=== PATIENT | female | born 2000 | race Caucasian/White ===

== ENCOUNTER → 2021-07-20 15:46 | Outpatient (CLI) | payer BC, SELFPAY ==
--- NOTE | ~2021-07-20 | US_ITS ---
EXAMINATION: US transvaginal DATE: 07/20/2021 16:03 INDICATION: Dysmenorrhea, IUD position assessment TECHNIQUE: Multiple endovaginal sonographic images of the pelvis were obtained. COMPARISON: None. FINDINGS: The uterus measures 6.1 x 3.7 x 4.7 cm. The endometrial complex measures 4 mm. The IUD is i n expected position. The right ovary measures 2.4 x 1.7 x 1.9 cm. The left ovary measures 2.9 x 1.8 x 2.7 cm. There is normal vascular flow in the ovaries. There is no free fluid in the pelvis. IMPRESSION: 1. No sonographic correlate for the patient's symptoms. 2. IUD in expected position. Reviewed, dictated and finalized at location F. [facility]
== END ==
PROVIDERS: Visit Provider Nurse Practitioner
DX: N94.6 Dysmenorrhea, unspecified (principal); Z97.5 Presence of (intrauterine) contraceptive device
CPT/HCPCS: 76830

== ENCOUNTER 2023-11-27 09:09 | Outpatient (CLI) | payer OTHER, SELFPAY ==
--- NOTE | ~2023-11-27 | US_ITS ---
Pelvic ultrasound. Clinical History: First trimester , establish dates and viability Technique: Realtime transvaginal scanning of the pelvis was performed. Color flow Doppler and Doppler spectral analysis were performed. Findings: The uterus is anteverted, and contains an intrauterine gestation. Cardwell-rump length of 3.6 m corresponds to an estimated gestational age of 10 weeks 3 days. heart rate is 161 bpm. The right ovary is not visualized. No significant right ovarian or adnexal mass is seen. The left ovary measures 3.8 x 2.9 x 2.0 cm. No significant left ovarian or adnexal mass is seen. There is no evidence of free fluid in the cul de sac. Impression: Live intrauterine gestation with estimated gestational age of 10 weeks 3 days. heart rate is 16 1 bpm. Reviewed, dictated and finalized at [facility]. Impression: Live intrauterine gestation with estimated gestational age of 10 weeks 3 days. heart rate is 161 bpm.
== END 2023-11-27 09:10 ==
PROVIDERS: PCP Obstetrics & Gynecology Gynecology; Visit Provider Obstetrics & Gynecology Gynecology
DX: Z36.87 Encounter for antenatal screening for uncertain dates (principal); E28.2 Polycystic ovarian syndrome
CPT/HCPCS: 76817

== ENCOUNTER 2023-12-10 15:49 | Outpatient (CLI) | payer OTHER, SELFPAY ==
--- NOTE | ~2023-12-10 | US_ITS ---
US OB transvaginal Ordering provider: Dinah Vázquez MD History: . 1ST TRIMESTER SPOTTING . Comparison: None. Technique: endovaginal ultrasound of the pelvis (Doppler ultrasound interrogation techniques used as needed for this exam.) FINDINGS: CERVIX: Normal. UTERUS: Measures 8.8 x 8.2 x 8.2 cm in length which is slightly enlarged. And is anteverted. . ENDOMETRIUM: Intrauterine with Heart rate is 164.. movement is noted. yolk sac is noted. pole measures 5.2 cm which equals 11 weeks and 6 days. NU: The 06/24/2024. CUL DE SAC: No free fluid. RIGHT OVARY: Not visualized LEFT OVARY: Not visualized. ADNEXA: No definite abnormal. IMPRESSION: Single live fetus. Intrauterine with gestational age of 11 weeks and 6 days.. Reviewed, dictated and finalized at location A.
== END 2023-12-10 15:50 ==
PROVIDERS: PCP Obstetrics & Gynecology Gynecology; Visit Provider Obstetrics & Gynecology Gynecology
DX: O26.851 Spotting complicating pregnancy, first trimester (principal)
CPT/HCPCS: 76817

== ENCOUNTER 2024-01-28 09:21 | Outpatient (CLI) | payer OTHER, SELFPAY ==
--- NOTE | ~2024-01-28 | US_ITS ---
EXAMINATION: US OB /maternal detail DATE: 01/28/2024 09:54 INDICATION: anatomic survey. TECHNIQUE: Real-time ultrasound of the pelvis was performed. COMPARISON: Ultrasound 12/10/2023, 11/27/2023 FINDINGS: There is a single living fetus in vertex presentation. The placenta is posterior, 2.47 cm from the c ervix. The cervical length is 3.5 cm on transabdominal images, which is normal. heart rate is 1 57 beats per minute (bpm). The amniotic fluid volume is subjectively normal. The following biometric data were obtained: Biparietal diameter (BPD): 4.5 cm; head circumference (HC): 17.1 cm; abdominal circumference (AC): 14 .0 cm; femur length (FL): 3.0 cm. These measurements are concordant. Estimated weight is 286 g +/- 43 g, which correlates with the 48th percentile when 06/21/24 is used as estimated date of delivery. As single measurements, these parameters are each equal to the following estimated gestational ages: BPD: 19 weeks 4 days. HC: 19 weeks 5 days. AC: 19 weeks 3 days. FL: 19 weeks 1 days. estimated gestational age based solely on measurements from this exam is 19 weeks 3 days +/- 1 weeks 3 days. The cerebral ventricles, cerebellum, cisterna magna, nuchal fold, and visualized portions of the spin e are normal. The four-chamber heart view is normal. The ventricular outflow tracts are not well visu alized. The diaphragm, stomach, kidneys, and bladder are normal. There are two umbilical arteries to yield a 3-vessel cord. The cord insertion is normal. IMPRESSION: 1. Single living fetus in vertex presentation. 2. Estimated weight is 286 g +/- 43 g, which correlates with the 48th percentile when 06/21/24 is used as estimated date of delivery. 3. ventricular outflow tracts not well visualized. Otherwise normal anatomic survey. Reviewed, dictated and finalized at location A. IMPRESSION: 1. Single living fetus in vertex presentation. 2. Estimated weight is 286 g +/- 43 g, which correlates with the 48th rcentile when 06/21/24 is used as estimated date of delivery. 3. ventricular outflow tracts not well visualized. Otherwise normal anatomic survey.
== END 2024-01-28 09:22 ==
LOC: MICIMG 09:22
PROVIDERS: PCP Obstetrics & Gynecology Gynecology; Visit Provider Obstetrics & Gynecology Gynecology
DX: Z36.9 Encounter for antenatal screening, unspecified (principal)
CPT/HCPCS: 76805

== ENCOUNTER 2024-02-25 09:54 | Outpatient (CLI) | payer OTHER, SELFPAY ==
--- NOTE | ~2024-02-25 | US_ITS ---
EXAMINATION: US OB follow up DATE: 02/25/2024 10:21 INDICATION: Incomplete anatomic survey. TECHNIQUE: Real-time ultrasound of the pelvis was performed. COMPARISON: Ultrasound 01/28/2024 FINDINGS: There is a single living fetus in vertex presentation. The placenta is posterior. heart rate i s 134 beats per minute (bpm). The four-chamber heart view and ventricular outflow tracts are normal. The amniotic fluid volume is subjectively normal. IMPRESSION: 1. Single living fetus in vertex presentation. 2. Normal heart. Reviewed, dictated and finalized at location A.
== END 2024-02-25 09:55 ==
LOC: MICIMG 09:55
PROVIDERS: PCP Obstetrics & Gynecology Gynecology; Visit Provider Obstetrics & Gynecology Gynecology
DX: Z36.2 Encounter for other antenatal screening follow-up (principal)
CPT/HCPCS: 76816

== ENCOUNTER 2024-03-18 09:19 | Outpatient (CLI) | payer OTHER, SELFPAY ==
--- NOTE | ~2024-03-18 | US_ITS ---
EXAMINATION: US OB follow up DATE: 03/18/2024 09:46 INDICATION: Assess growth and placenta during transition from the second and third trimester pr egnancy TECHNIQUE: Real-time ultrasound of the pelvis was performed. The interpreting radiologist was not pre sent for the study. COMPARISON: None. FINDINGS: There is a single living fetus in vertex presentation. The placenta is posterior with caudal margin greater than 5 cm from the region of the internal cervical os. The cervix is however partially obscur ed by the skull.. heart rate is 140 beats per minute (bpm). The amniotic fluid index is 14.4 cm, which is normal (5th%-95%: 9.7-22.3 cm at 26 weeks estimated gestational age). The following biometric data were obtained: BPD: 6.8 cm -> 27 weeks 2 days Head circumference: 25.1 cm -> 27 weeks 1 days Abdominal circumference: 21.3 cm -> 25 weeks 5 days Femur length: 5.0 cm -> 26 weeks 5 days These measurements are concordant. Head circumference to abdominal circumference ratio: 1.18 (normal range 1.05-1.22). Estimated weight: 925 g (+/-) 139 g or 2 lbs. 1 oz. (+/-) 5 oz. IMPRESSION: 1. Single living fetus in vertex presentation with heart rate of 140 bpm. 2. Normal amniotic fluid index of 14.4 cm. 3. Estimated weight is 35th percentile by Hadlock criteria when 06/21/2024 is used as the estim ated date of delivery (NU). Please correlate with clinical information or earlier ultrasounds for mo st accurate NU. Reviewed, dictated and finalized at location B. IMPRESSION: 1. Single living fetus in vertex presentation with heart rate of 140 bpm. 2. Normal amniotic fluid index of 14.4 cm. 3. Estimated weight is 35th percentile by Hadlock criteria when 4 is used as the estimated date of delivery (NU). Please correlate with clinic al information or earlier ultrasounds for most accurate NU.
== END 2024-03-18 09:20 | disposition home or self-care (01) ==
PROVIDERS: PCP Obstetrics & Gynecology Gynecology; Visit Provider Obstetrics & Gynecology Gynecology
DX: Z36.2 Encounter for other antenatal screening follow-up (principal)
CPT/HCPCS: 76816

== ENCOUNTER 2024-04-29 10:02 | Outpatient (CLI) | payer OTHER, SELFPAY ==
--- NOTE | ~2024-04-29 | US_ITS ---
EXAMINATION: US OB follow up DATE: 04/29/2024 10:29 INDICATION: Estimated size greater than expected for estimated gestational age. TECHNIQUE: Real-time ultrasound of the pelvis was performed. The interpreting radiologist was not pre sent for the study. COMPARISON: None. FINDINGS: There is a single living fetus in vertex presentation. The placenta is posterior and not low-lying. The region of the cervix is partially obscured precluding accurate assessment for cervical length. Fe nestor heart rate is 145 beats per minute (bpm). The amniotic fluid index is 15.4 cm, which is normal ( 5th%-95%: 8.6-24.2 cm at 32 weeks estimated gestational age). The following biometric data were obtained: BPD: 8.3 cm -> 33 weeks 3 days Head circumference: 31.4 cm -> 35 weeks 2 days Abdominal circumference: 27.9 cm -> 32 weeks 0 days Femur length: 6.4 cm -> 32 weeks 6 days Head circumference to abdominal circumference ratio: 1.13 (normal range 0.95-1.11). These measurements are otherwise concordant. Estimated weight: 2027 g (+/-) 304 g or 4 lbs. 8 oz. (+/-) 11 oz. IMPRESSION: 1. Single living fetus in vertex presentation with heart rate of 145 bpm. 2. Normal amniotic fluid index of 15.4 cm. 3. Estimated weight is 48th percentile by Hadlock criteria when 06/21/2024 is used as the estim ated date of delivery (NU). Please correlate with clinical information or earlier ultrasounds for mo st accurate NU. 4. Head circumference to abdominal circumference ratio slightly greater than the normal range. Reviewed, dictated and finalized at location A. IMPRESSION: 1. Single living fetus in vertex presentation with heart rate of 145 bpm. 2. Normal amniotic fluid index of 15.4 cm. 3. Estimated weight is 48th percentile by Hadlock criteria when 4 is used as the estimated date of delivery (NU). Please correlate with clinic al information or earlier ultrasounds for most accurate NU. 4. Head circumference to abdominal circumference ratio slightly greater than th e normal range.
== END 2024-04-29 10:03 | disposition home or self-care (01) ==
LOC: MICIMG 10:03
PROVIDERS: PCP Obstetrics & Gynecology Gynecology; Visit Provider Advanced Practice Midwife
DX: O36.63X0 Maternal care for excessive fetal growth, third trimester, not applicable or unspecified (principal); Z3A.00 Weeks of gestation of pregnancy not specified
CPT/HCPCS: 76816

== ENCOUNTER 2024-06-19 10:25 | Outpatient (CLI) | payer OTHER, SELFPAY ==
[2024-06-19 12:00] VITALS: BP 128/79; PULSE 117
[2024-06-19 12:10] LABS: OBXCEM ROM Plus Negative (Negative)
== END 2024-06-19 11:55 | disposition home or self-care (01) ==
LOC: ANHOBOP 11:44 → ANHLDR 11:49
PROVIDERS: PCP Obstetrics & Gynecology Gynecology; Visit Provider Obstetrics & Gynecology Gynecology
DX: O42.90 Premature rupture of membranes, unspecified as to length of time between rupture and onset of labor, unspecified weeks of gestation (principal); Z3A.00 Weeks of gestation of pregnancy not specified
CPT/HCPCS: 59025; 84112; 99199

== ENCOUNTER 2024-06-20 13:07 | Inpatient (IN) | payer OTHER, SELFPAY ==
[2024-06-20] VITALS (146 sets, daily range): BP systolic 63–163; BP diastolic 20–132; PULSE 75–164; TEMP 36.3; O2SAT 95–100; BMI 45.2
--- NOTE | 2024-06-20 15:25 | LDADM ---
This patient, Dalia Berger, was admitted to Labor/Delivery/Recovery 106 on 06/20/24 at 13:07. Plans for labor, pain management and were discussed with patient. Patient/family oriented to hospital policies and general routines including ID bracelet, bed and alarms, visiting hours, pain management, procedures, bathroom and other care routines, personal items, smoking policy, room service/diet and guest tray routines, infant security routines, and visiting hours. Patient/Family are encouraged to report perceived risks to care and to ask questions if they do not understand what they are told or what they should do. See OBIX for further documentation.
[2024-06-20 15:34] LABS: Basophils Percent Auto 0.3 % (0.2-1.2); Eosinophils Absolute Auto 0.1 K/mm3 (0-0.3); Eosinophils Percent Auto 0.5 % (0-4.4); Hematocrit 39.6 % (37.0-47.0); Hemoglobin 13.1 g/dL (12.0-15.0); Immature Granulocyte Absolute 0.08 K/mm3 (0.00-0.031); Immature Granulocyte Percent A 0.6 % (0-0.5); Lymphocytes Absolute Auto 2.26 K/mm3 (0.9-3.2); Lymphocytes Percent Auto 16.5 % (18.3-44.2); Mean Corpuscular HGB Conc 33.1 g/dl (32-36); Mean Corpuscular Volume 87.8 fl (80-100); Mean Platelet Volume 10.5 fl (7.4-10.4); Monocytes Absolute Auto 0.7 K/mm3 (0.1-0.6); Monocytes Percent Auto 4.9 % (2.6-8.5); Neutrophils Absolute Auto 10.6 K/mm3 (1.3-6.7); Neutrophils Percent Auto 77.2 % (45.5-73.1); Platelet Count Result 298 k/mm3 (150-375); Red Blood Count 4.51 M/mm3 (4.2-5.4); Red Cell Distribution Width 13.2 % (11.5-14.5); White Blood Count 13.7 K/mm3 (4.5-10.0)
[2024-06-20] MEDS: LACTATED RINGERS 1,000 ML 125 ML IV CONT ×3 (15:36→21:40)
[2024-06-20] MEDS: AMPICILLIN 2 GM/NS 100 ML 2 GM/100 ML BAG IVPB (15:37)
[2024-06-20 16:24] LABS: HIV 1/2 Ab P24 Ag Result Negative (Negative)
--- NOTE | 2024-06-20 16:39 | WPDANESEPP ---
Anes - Eval Pre Procedure Procedure: Labor epidural Date/Time: 06/20/24 16:39 Preop Diagnosis: Pain during labor Pre Op Diagnosis: Labor/Contractions Patient Data Age: 24 Gender: F Height: 1.73 m Weight: 135 kg Last Vital Signs Pulse 95 06/20/24 16:31 BP 126/72 06/20/24 16:31 O2 Del Method Room Air 06/20/24 15:22 Allergies Allergy/AdvReac Type Severity Reaction Status Date / Time No Known Allergies Allergy Verified 06/08/24 13:25 Home Medications ?Medication ?Instructions ?Recorded ?Confirmed ?Type Classic 1 tab-cap PO DAILY 06/08/24 06/08/24 History aspirin 81 mg tablet 81 mg PO DAILY 06/08/24 06/08/24 History cholecalciferol (vitamin D3) 125 125 mcg PO DAILY 06/08/24 06/08/24 History mcg (5,000 unit) tablet Laboratory Tests 06/20/24 15:19 WBC 13.7 H K/mm3 (4.5-10.0) RBC 4.51 M/mm3 (4.2-5.4) Hgb 13.1 g/dL (12.0-15.0) Hct 39.6 % (37.0-47.0) MCV 87.8 fl (80-100) MCH 29.0 pg (26-34) MCHC 33.1 g/dl (32-36) RDW 13.2 % (11.5-14.5) Plt Count 298 k/mm3 (150-375) MPV 10.5 H fl (7.4-10.4) Immature Gran % (Auto) 0.6 H % (0-0.5) Neut % (Auto) 77.2 H % (45.5-73.1) Lymph % (Auto) 16.5 L % (18.3-44.2) [place] % (Auto) 4.9 % (2.6-8.5) Eos % (Auto) 0.5 % (0-4.4) Baso % (Auto) 0.3 % (0.2-1.2) Lymph # (Auto) 2.26 K/mm3 (0.9-3.2) [place] # (Auto) 0.7 H K/mm3 (0.1-0.6) Eos # (Auto) 0.1 K/mm3 (0-0.3) Baso # (Auto) 0.0 K/mm3 (0.0-0.1) Abs Immat Gran (auto) 0.08 H K/mm3 (0.00-0.031) Absolute Neuts (auto) 10.6 H K/mm3 (1.3-6.7) Absolute Nucleated RBC 0.000 K/mm3 (0.0-0.012) Nucleated RBC % 0.0 % (0.0-0.2) RPR Pending HIV 1&2 Ab/P24 Ag 4thGn Negative (Negative) Blood Type O Positive Antibody Screen Negative Patient hx anesthesia problems: none Family hx anesthesia problems: none Results Review: All pre-operative results and documents have been reviewed as part of the pre-operative evaluation. [facility] Family History Family History Father Patient's father is in good health Mother Brain cancer Social History Social History Smoking status: Never smoker Alcohol intake: never Substance use: never Do You Feel Safe in your Home?: Yes Lack of Transportation: No Lack of Food: Never True Current Housing: I Have Housing Concerned About Future Housing: No Difficulty Paying Gas/Electric Bills: No Difficulty Paying for Meds: No Currently Unemployed: No Education: Bachelor's Degree Difficulty w/ Childcare or Family Care: No Spiritual care concerns: No Exam Day of Procedure 06/20/24 16:39 Patient weight: morbidly obese Heart: regular rate and rhythm Lungs: clear to auscultation Airway: Mallampati scale class II Neurological: alert and oriented
[2024-06-20 16:59] LABS: Rapid Plasma Reagin Non-Reactive (NonReactive)
[2024-06-20] MEDS: ONDANSETRON INJ 4 MG/2 ML VIAL IV PUSH (17:22)
[2024-06-20] MEDS: AMPICILLIN 1 GM/NS 50 ML 1 GM/50 ML BAG IVPB ×2 (19:08→22:53)
[2024-06-20] MEDS: PHENYLEPHRINE 1,000 MCG/10 ML SYRINGE 100 MCG IV PUSH ×5 (20:02→20:34)
[2024-06-20] MEDS: OXYTOCIN 30 UNITS/NS 500 ML 30 UNITS/500 ML BAG IV CONT (22:55)
[2024-06-21] VITALS (116 sets, daily range): BP systolic 85–148; BP diastolic 30–110; PULSE 75–235; RESP 16; TEMP 36.1–37.2; O2SAT 89–100
[2024-06-21] MEDS: AMPICILLIN 1 GM/NS 50 ML 1 GM/50 ML BAG IVPB (03:31)
[2024-06-21] MEDS: ONDANSETRON INJ 4 MG/2 ML VIAL IV PUSH (04:15)
--- NOTE | 2024-06-21 07:56 | WPDOBADMIT ---
Obstetrics - Admit Note Admission Note: record reviewed. Additions to the history and/or subsequent changes in the physical findings follow. 24 y/o G1 at 39 3/7 weeks here with contractions. Labor diagnosed. Epidural for pain control. GBS pos, receiving ampicillin. SROM this morning, clear. Now with urge to push. AVSS NST reactive TOCO: contractions every 2-4 min ABD soft, nontender, gravid, vertex EXT nontender Cervix C/+2 A: IUP at term with labor, GBS pos. P: Ampicillin. Anticipate .
--- NOTE | 2024-06-21 07:58 | PM.OBPRVD ---
OB - Vaginal Delivery Note Procedure Delivery date: 06/21/24 Events: Positive Group B Strep (GBS) and Other (IUP at term with labor) Induction method: None Delivery augmentation: Pitocin Delivery monitor: External FHT and External Uterine Route of delivery: Episiotomy description: None Laceration Description: Perineal - 2nd Degree Delivery repair: vicryl (3-0 Vicryl) Specimen: Yes (cord blood) Quantitative Blood Loss (ml): 420 Anesthesia type: Epidural Disposition: PACU Complications: None Narrative: 24 y/o G1 at 39 3/7 weeks gestation who presented to the hospital with contractions. Labor was diagnosed. Ampicillin was giving IV for GBS colonization. She received an epidural for pain control. Labor was subsequently augmented with oxytocin. SROM occurred with clear fluid. Her labor progressed and her cervix dilated completely. She pushed with good effort and delivered the infant's head to the perineum, followed by the body. The nose and mouth were bulb suctioned. After a delay, the cord was clamped and cut. The was handed off the field. Cord blood was collected. The placenta delivered spontaneously and was grossly normal in appearance. The usual 3 vessel cord was noted. A second degree midline perineal laceration was sustained. This was reapproximated using 3 0 Vicryl in the usual layered fashion. Excellent hemostasis resulted as did excellent reapproximation of the normal anatomy. Needle and instrument counts were correct. The patient was taken to recovery room in stable condition. The went to the nursery in stable condition. I was present and scrubbed for the entire delivery. [place] Baby Date of : 06/21/24 Time of : 07:30 Gestational Age by Date: 39 gender: Male presentation: vertex position: Left Occiput Anterior Placenta delivery description: Spontaneous and Normal Configuration Cord Vessel Description: 3 Vessels and Delayed Cord Clamping score one minute: 9 score five minutes: 9
--- NOTE | 2024-06-21 08:01 | P.DS_ITS ---
DS: Admitting Diagnosis Discharge Date 06/22/24 <Dinah Vázquez MD - Last Filed: 06/22/24 09:50> Admitting Diagnosis IUP at 39 3/7 weeks Labor GBS colonization <Rashad Hurley MD - Last Filed: 06/23/24 13:59> DS: Discharge Diagnosis Discharge Diagnosis (1) (normal spontaneous vaginal delivery): Code(s): O80 - Encounter for full-term uncomplicated delivery <Rashad Hurley MD - Last Filed: 06/23/24 13:59> Status: Acute <Rashad Hurley MD - Last Filed: 06/23/24 13:59> (2) GBS (group B Streptococcus carrier), +RV culture, currently : Code(s): O99.820 - Streptococcus B carrier state complicating <Rashad Hurley MD - Last Filed: 06/23/24 13:59> Status: Acute <Rashad Hurley MD - Last Filed: 06/23/24 13:59> OB - DS: Summary OB Procedures : None <Rashad Hurley MD - Last Filed: 06/23/24 13:59> OB Procedures Intrapartum: Spontaneous Vag Delivery and GBS prophylaxis <Rashad Hurley MD - Last Filed: 06/23/24 13:59> OB Procedures: : None <Rashad Hurley MD - Last Filed: 06/23/24 13:59> Peripartum Data Laceration Description: Perineal - 2nd Degree <Rashad Hurley MD - Last Filed: 06/23/24 13:59> Episiotomy description: None <Rashad Hurley MD - Last Filed: 06/23/24 13:59> Time Spent with Patient Time attestation: Total time spent providing and/or coordinating discharge services: <Rashad Hurley MD - Last Filed: 06/23/24 13:59> DS: Data Data Completed and Pending Labs on day of discharge: Labs from last 24 hours 06/20/24 15:19 WBC 13.7 H RBC 4.51 Hgb 13.1 Hct 39.6 MCV 87.8 MCH 29.0 MCHC 33.1 RDW 13.2 Plt Count 298 MPV 10.5 H Immature Gran % (Auto) 0.6 H Neut % (Auto) 77.2 H Lymph % (Auto) 16.5 L [place] % (Auto) 4.9 Eos % (Auto) 0.5 Baso % (Auto) 0.3 Lymph # (Auto) 2.26 [place] # (Auto) 0.7 H Eos # (Auto) 0.1 Baso # (Auto) 0.0 Abs Immat Gran (auto) 0.08 H Absolute Neuts (auto) 10.6 H Absolute Nucleated RBC 0.000 Nucleated RBC % 0.0 RPR Non-reactive HIV 1&2 Ab/P24 Ag 4thGn Negative Blood Type O Positive Antibody Screen Negative <Rashad Hurley MD - Last Filed: 06/23/24 13:59> Discharge Plan Discharge Attending physician on discharge: Dinah Vázquez <Rashad Hurley MD - Last Filed: 06/23/24 13:59> Dinah Vázquez <Dinah Vázquez MD - Last Filed: 06/22/24 09:50> Consulting providers: Laina Mccoy; Jackie Crocker; Heather Wilson <Rashad Hurley MD - Last Filed: 06/23/24 13:59> Discharging Clinician: Dinah áVzquez <Rashad Hurley MD - Last Filed: 06/23/24 13:59> Dinah Vázquez <Dinah Vázquez MD - Last Filed: 06/22/24 09:50> Anticipated Discharge Date/Time: 06/22/24 09:49 <Rashad Hurley MD - Last Filed: 06/23/24 13:59> Patient Disposition: Home, Self-Care <Rashad Hurley MD - Last Filed: 06/23/24 13:59> Activity: pelvic rest <Rashad Hurley MD - Last Filed: 06/23/24 13:59> pelvic rest <Dinah Vázquez MD - Last Filed: 06/22/24 09:50> Diet: regular <Rashad Hurley MD - Last Filed: 06/23/24 13:59> regular <Dinah Vázquez MD - Last Filed: 06/22/24 09:50> Discharge Instructions: Call or return if temperature above 100.4? F, increased abdominal pain, increased vaginal bleeding or any new problems. Education: Mom and Baby Guide Given to: Mother Follow-Up: Call your delivering provider's office for an appointment to be seen in: 4 Weeks Mom and baby should come to the [facility] for the follow-up appointment. Appointment Date/Time: June 23, 2024 at 9:00 am What to expect at your follow-up visit: Physical Assessment Call [phone] if you are unable to keep your appointment time. BREAST CARE: * Wear a snug supportive bra. * For engorgement discomfort: Breast Feeding: * Apply warm moist washcloths * Express milk as needed to relieve engorgement * Wear loose clothing * For sore nipples: * Identify correct latch-on * Apply warm moist washcloths before and after nursing * Air dry nipples after nursing * May apply Lansinoh cream to nipples EPISIOTOMY/PERINEAL CARE: * Until bleeding stops, use your tanisha bottle after urinating * Change your pad frequently throughout the day * You may take sitz baths several times a day (fill your bathtub with warm water and soak for 20 minutes.) Do NOT bathe in the water * No tub baths until seen by your physician - You may shower ACTIVITY: * Rest as much as possible. * Do not exercise or lift anything heavier than your baby (such as laundry or other children.) * Avoid stairs or driving as much as possible. * Do not put anything into the vagina. No douching, tampons, or sexual activity until seen by physician. NOTIFY PHYSICIAN IF YOU HAVE ANY QUESTIONS OR IF ANY OF THE FOLLOWING SYMPTOMS OCCUR: * If your episiotomy or incision becomes red, swollen, or more painful than what you have experienced in the hospital. * If your vaginal bleeding becomes foul smelling. * If your vaginal bleeding becomes more heavy than a period or if your bleeding changes from pink to bright red. However, you may pass an occasional walnut- sized clot once or twice for the first week . * If you experience a sharp, shooting pain in you calves. * If you discover a hard, reddened area on your breast or if you experience flu- like symptoms. DIET: * Eat regular, well-balanced meals. * Drink plenty of fluids daily. If , drink to thirst. <Rashad Hurley MD - Last Filed: 06/23/24 13:59> Patient Language: Georgian <Rashad Hurley MD - Last Filed: 06/23/24 13:59> Stand Alone Forms: General Discharge Information <Rashad Hurley MD - Last Filed: 06/23/24 13:59> Follow-up/Referrals: Dinah Vázquez MD [Physician] - 6 Weeks <Rashad Hurley MD - Last Filed: 06/23/24 13:59> Discharge Medications: New norethindrone (contraceptive) 0.35 mg tablet 0.35 mg PO DAILY Qty: 84 3RF Continued cholecalciferol (vitamin D3) 125 mcg (5,000 unit) Tablet 125 mcg PO DAILY Classic 1 tab-cap PO DAILY Discontinued aspirin 81 mg Tablet 81 mg PO DAILY <Rashad Hurley MD - Last Filed: 06/23/24 13:59> Date of admission: 06/20/24 13:07 <Rashad Hurley MD - Last Filed: 06/23/24 13:59> Primary Care Provider: UNKNOWN,DOCTOR <Rashad Hurley MD - Last Filed: 06/23/24 13:59> Admitting Provider: Rashad Hurley <Rashad Hurley MD - Last Filed: 06/23/24 13:59> Attending physician on admission: Dinah Vázquez <Rashad Hurley MD - Last Filed: 06/23/24 13:59> Condition: Stable <Rashad Hurley MD - Last Filed: 06/23/24 13:59>
[2024-06-21] MEDS: OXYTOCIN 30 UNITS/NS 500 ML 30 UNITS/500 ML BAG 999 UNITS IV CONT (08:08)
[2024-06-21] MEDS: OXYTOCIN 30 UNITS/NS 500 ML 30 UNITS/500 ML BAG 125 UNITS IV CONT (08:08)
[2024-06-21] MEDS: WITCH HAZEL 40 PADS 1 PAD TOPICAL (09:11)
[2024-06-21] MEDS: IBUPROFEN 600 MG TABLET PO ×2 (09:12→18:31)
[2024-06-21] MEDS: ACETAMINOPHEN 325 MG TABLET 650 MG PO ×2 (09:12→18:31)
[2024-06-21] MEDS: BENZOCAINE 20% AER SPR (*SP) 56 GM CAN 1 SPRAY TOPICAL (09:12)
[2024-06-22] MEDS: IBUPROFEN 600 MG TABLET PO (05:05)
[2024-06-22] MEDS: ACETAMINOPHEN 325 MG TABLET 650 MG PO (05:05)
[2024-06-22 08:10] VITALS: BP 125/66; PULSE 81; RESP 16; TEMP 36.8; O2SAT 98
--- NOTE | 2024-06-22 08:15 | PC.NURSE ---
Observed mother with latched to the [right] breast in [cradle] position. [was] able to maintain an appropriate latch. Mother [declines] nipple pain/discomfort [throughout feeding]. Mother states the feedings have been going well, other than baby was very sleepy initially. Reviewed using the blue feeding sheet to record time and duration of feeding. Mother voiced understanding of the education shared, to call for assistance if the infant does not latch or if there is discomfort with . name/number on communication board. Reported to the Primary RN.
[2024-06-22 08:54] LABS: Hematocrit 28.6 % (37.0-47.0); Hemoglobin 9.1 g/dL (12.0-15.0)
[2024-06-22] MEDS: DOCUSATE SODIUM 100 MG CAPSULE PO (09:24)
[2024-06-22] MEDS: MULTIVIT/MIN/PREN/FOL AC/IRON TABLET 1 TAB PO (09:24)
[2024-06-22] MEDS: POLYSACCHARIDE IRON COMPLEX 150 MG CAPSULE PO (09:24)
--- NOTE | 2024-06-22 09:48 | P.PNOB_ITS ---
OB - PN: Subj Subjective Date/time seen: 06/22/24 09:48 Patient comments: no complaints and pain well controlled baby status: doing well OB - PN: Obj Data Labs 06/22/24 08:48 Labs: Laboratory Results - last 24 hr 06/22/24 08:48 Hgb 9.1 L D Hct 28.6 L OB - PN A/P Plan day: 1 Plan: routine care, discharge home, follow up 6 weeks and other (plans POP) Time Spent With Patient Time: Total time spent is greater than 50% in coordination of care (as documented) at patient's floor/unit and/or counseling patient: Exam 2 : Bimanual exam- vagina & uterus: other (Uterus firm, nt @U)
--- NOTE | 2024-06-22 10:08 | WPDANLDPN2 ---
Anes-Prog Note L&D Date/Time: 06/22/24 10:08 Neuro status: Neuro function grossly intact. Cardiovascular status: normal Respiratory status: normal Airway patency: baseline Mental status: baseline Post-Op hydration status: normal Vital Signs: Last Vital Signs Temp 36.7 C 06/21/24 23:34 Pulse 85 06/21/24 23:35 Resp 16 06/21/24 23:34 BP 119/50 L 06/21/24 23:35 Pulse Ox 92 06/21/24 06:27 O2 Del Method Room Air 06/20/24 18:32 Pain score (VAS): 0 Post-procedural complaints: none Patient feedback: Patient satisfied with anesthetic care.
--- NOTE | 2024-06-22 12:00 | PC.NURSE ---
Consulted with mother concerning needs and she shared her ability to independently latch infant optimally without pain. Mother is feeding appropriately for growth of and understands stimulating to eat if needed. Infant has had appropriate feedings in the last 24 hours meets the outcomes for weight, output, blood sugar and jaundice at this time. Reinforced understanding of milk production, transition of milk, signs of adequate intake, transition of stool, prevention/relief of engorgement, plugged ducts, mastitis, responsive watching for feeding cues, the different methods of stimulating to breastfeed 1-3 hours after the start of the last feeding, community resources, and when to call a provider using the resource of the feeding sheet along with the mom and baby guide and admission packet. Mother voiced understanding of the information shared, is confident to continue effectively her infant at home, when to call for assistance, denies any additional assistance or education at this time. Reported to the Primary RN.
--- NOTE | 2024-06-22 12:46 | PC.NURSE ---
Patient instructed on viewing the discharge video Mother & Baby Care, The First Two Weeks . Patient was given the opportunity and encouraged to ask questions. Patient verbalized understanding of information shared and has been given the mother/baby guide for home reference.
--- NOTE | 2024-06-22 14:11 | WPDANLDPN2 ---
Anes-Prog Note L&D Date/Time: 06/22/24 14:11 Comfortable throughout: labor and delivery Neuraxial method: epidural Epidural/Spinal procedure site: clean & non-tender Neuro status: Neuro function grossly intact. Cardiovascular status: normal Respiratory status: normal Airway patency: baseline Mental status: baseline Post-Op hydration status: normal Vital Signs: Last Vital Signs Temp 98.2 F 06/22/24 08:10 Pulse 81 06/22/24 08:10 Resp 16 06/22/24 08:10 BP 125/66 06/22/24 08:10 Pulse Ox 98 06/22/24 08:10 O2 Del Method Room Air 06/20/24 18:32 Pain score (VAS): 0 Post-procedural complaints: none Patient feedback: Patient satisfied with anesthetic care.
[2024-06-23 09:30] VITALS: BP 120/71; PULSE 88; RESP 18; TEMP 36.8; O2SAT 100
== END 2024-06-22 14:15 | disposition home or self-care (01) | DRG 807 ==
LOC: ANHLDR 06-21 08:03 → ANHOBPP 06-21 10:24 → ANHOB2 06-22 08:04
PROVIDERS: Admitting Provider Obstetrics & Gynecology; Visit Provider Obstetrics & Gynecology Gynecology
DX: O99.824 Streptococcus B carrier state complicating childbirth (principal); Z37.0 Single live birth; Z3A.39 39 weeks gestation of pregnancy; O70.1 Second degree perineal laceration during delivery
CPT/HCPCS: 36415; 59025; 84112; 85014; 85018; 85025; 86592; 86703; 86850; 86900; 86901; 99199; A9270; G0432; J0290; J2371; J2405; J2590; J2795; J7120

== ENCOUNTER 2024-06-27 10:12 | Outpatient (CLI) | payer OTHER, SELFPAY ==
--- NOTE | 2024-06-27 10:15 | PC.NURSE ---
In- 1015 Out- 1100 Reason for visit: Dalia has concerns about having a low milk production and would like pumping assessment and flange measurement. History: Dalia delivered baby Wu at 39/3 weeks via spontaneous vaginal delivery. She had spontaneous ROM and positive GBS treated with ampicillin. There were no complications for mother or baby. Mom does have a history of PCOS but did not have any trouble getting . Her breasts are slightly widely set. History: Wu has been since , with a good latch from the start. Mom has never had complaints of nipple pain. Mom's main concern is that he isn't getting enough at the breast. She is supplementing after with breastmilk from her sister who recently had a baby. She states she mostly gives the supplement at night when baby is fussy. Throughout the day she is feeding at the breast. Her breasts feel full before a feeding and empty after the feeding. Baby is generally satisfied after during the day. If mom doesn't put baby to breast she pumps and gets a total of 1 ounce on average. Observations: Dalia latches baby to the right breast in cross cradle hold. He is eager and latches easily. His lower lip was rolled in so mom was shown how to observe and correct it by pulling down on baby's chin after latching. He swallowed heavily and fed consistently for 14 minutes. After he came off the first breast the second breast was offered but he did not latch due to sleepiness. After weighing him, we found he took 32ml at breast. Mom states that if she gives him a bottle it is typically 1-1.5 ounces. He appears satisfied and content while mom begins pumping. She only got a few milliliters from the right breast after baby fed and pumped close to 1 ounce on the left breast (which baby did not feed from). Advised that we would expect a similar amount to be pumped from the left breast that baby didn't feed from as what baby was able to remove from the right breast during the feeding. She is using a 17mm flange size with her Spectra pump. She states no pain with pumping and is using a high level of suction. We measured and her nipple size is 17-18mm on the right breast after feeding, and 16mm on the left breast. Encouraged mom to try a larger flange size for a better result when pumping. She has a 24mm that came with her pump and she can try that to see if she is able to pump a greater volume. If there is no difference in the volume she pumps, she should use the flange that is most comfortable for her. weight: 3600, 7-15 Discharge weight: 3513, 7-12 Last weight: 7-8 (at supplier diversity director yesterday) Pre-feed weight: 3556 Post-feed weight: 3588 Plan of Care: Mom instructed to use satisfaction and feeding cues to guide the feeding frequency and amount. If baby comes off the breast and seems hungry, encouraged continued supplementation with pumped breastmilk, mom's own before donor milk. Advised that frequently putting baby to breast and allowing her body to respond to his nutritional needs is the ideal way to have an adequate supply. Due to mom's history and concerns about production, advised pumping after some feedings throughout the day to help boost her supply. Since she is only 6 days , there is good potential for her to have an increased milk supply within the next few days. Mom is encouraged to reduce stress, get good rest, and eat a variety of foods and hydrate to thirst. Follow up plans: Dalia should expect to see a gradual increase over the next few days in the amount of milk she produces. If she does not have an increase in milk supply, she can call to discuss other ways to increase supply, such as power pumping. She agrees to contact us with any further questions or concerns. She will follow up with her supplier diversity director in 1 week as scheduled for a weight check.
== END 2024-06-27 10:13 | disposition home or self-care (01) ==
LOC: ANHOBOP 10:15
PROVIDERS: Visit Provider Pediatrics
DX: O92.4 Hypogalactia (principal)
CPT/HCPCS: 99202; G0463

== ENCOUNTER 2025-06-14 18:48 | Emergency (ER) | payer OTHER, SELFPAY ==
--- NOTE | ~2025-06-14 | XR_ITS ---
XR ankle LT min 3V INDICATION: injury . COMPARISON: None. FINDINGS: Frontal, lateral and oblique views of the left ankle demonstrate no acute fracture or dislocation. The ankle mortise is intact. IMPRESSION: No acute fracture or dislocation. Reviewed, dictated and finalized at location [facility]
--- OUTSIDE RECORDS SUMMARY | 2025-06-14 18:50 | XMS_ITS | Clinical Summary ---
Author Organization [facility] Address [address] [place] [id number] Phone Care Team Providers Care Subcontract Manager Name Role Phone Unavailable Primary Care Provider Unavailabl e Encounters Date Type Department Care Team Description 2025 External Device Data ST[facility] ABSTRACTION Provider, Abstract 04/20/2025 External Device Data [facility] ABSTRACTION Provider, Abstract 03/16/2025 External Device Data [facility] ABSTRACTION Provider, Abstract from Last 3 Months Social History Tobacco Use Types Packs/Day Years Used Date Smoking Tobacco: Never Assessed Comments Unknown Sex and Gender Information Value Date Recorded Sex Assigned at Not on file 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
--- OUTSIDE RECORDS SUMMARY | 2025-06-14 18:50 | XMS_ITS | Clinical Summary ---
Author Organization [address] Address [address] [place] [facility] [address] Care Team Providers Care Sales Trainee Name Role Phone No, Physician Primary Care Provider [phone] Encounters Date Type Department Care Team Description 03/16/2025 Results [facility] [address] [place] [address] Savi Barajas MA [email or web address].TB Blood from Last 3 Months Social History Tobacco Use Types Packs/Day Years Used Date Smoking Tobacco: Never Assessed Comments Unknown Sex and Gender Information Value Date Recorded Sex Assigned at Not on file 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 Gender Identity Not on file Sexual Orientation Not on file Last Filed Vital Signs Vital Sign Reading Time Taken Comments Blood Pressure 146/86 11/28/2017 7:10 AM CDT Pulse 91 11/28/2017 7:10 AM CDT Temperature 36.7 C (98 F) 11/28/2017 7:10 AM CDT Respiratory Rate - - Oxygen Saturation 100% 11/28/2017 7:10 AM CDT Inhaled Oxygen Concentration - - Weight 110.2 kg (243 lb) 09/05/2018 8:45 AM PROCESS SPECIALIST Height 172.7 cm (5' 8) 09/05/2018 8:45 AM PROCESS SPECIALIST Body Mass Index 36.95 09/05/2018 8:45 AM PROCESS SPECIALIST Plan of Treatment Health Maintenance Due Date Last Done Comments Cervical Cancer Screening 1999 Depression Screening 1999 Hepatitis C Screening 1999 Varicella Vaccines (1 of 2 - 13+ 2-dose series) 2012 HPV Vaccines (1 - 3-dose series) 2014 Hepatitis B Screening 2017 Regular Well Visit/Exam 18-64 2017 Covid-19 Vaccine (3 - 2024-2 6 season) 2025 09/15/2021, 08/18/2021 Influenza Vaccine (#1) 2025 , 04/12/2023, 04/19/2022 DTaP/Tdap/Td Vaccine (4 - Td or Tdap) 04/22/2034 04/22/2024, 11/24/2021, 04/07/2014 Pneumococcal vaccine <65 Aged Out No longer eligible based on patient's age to complete this topic Care Teams Sales Trainee Relationship Specialty Start Date End Date No, Physician PCP - General 02/05/23
--- OUTSIDE RECORDS SUMMARY | 2025-06-14 18:50 | XMS_ITS | Encounter Summary ---
Author Organization 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 Historical Provider Final Res ult documented in this encounter Visit Diagnoses Not on filedocumented in this encounter Care Teams Parts Manager Relationship Specialty Start Date End Date No, Physician PCP - General 02/05/23 documented as of this encounter
--- OUTSIDE RECORDS SUMMARY | 2025-06-14 18:50 | XMS_ITS | Clinical Summary ---
Author Organization [facility] Address [address] [place] [id number] Care Team Providers Care Ocean Import Representative Name Role Phone Stefan Bella MD Primary Care Provider [phone] Allergies No known active allergies Medications No known medications Social History Tobacco Use Types Packs/Day Years Used Date Smoking Tobacco: Never Smokeless Tobacco: Never Tobacco Cessation:Counseling Given: Not Answered Estimated Date of Delivery Comme nts Yes 06/24/2024 Sex and Gender Information Value Date Recorded Sex Assigned at Not on file Legal Sex Female 11:14 PM CDT Gender Identity Not on file Sexual Orientation Not on file Last Filed Vital Signs Vital Sign Reading Time Taken Comments Blood Pressure 132/75 12/28/2023 10:38 AM CDT Pulse 84 12/28/2023 10:38 AM CDT Temperature 36.7 C (98 F) 12/28/2023 10:38 AM CDT Respiratory Rate 18 12/28/2023 10:38 AM CDT Oxygen Saturation 99% 12/28/2023 10:38 AM CDT Inhaled Oxygen Concentration - - Weight 109.8 kg (242 lb) 12/28/2023 10:38 AM CDT Height 170.2 cm (5' 7) 12/28/2023 10:38 AM CDT Body Mass Index 37.9 12/28/2023 10:38 AM CDT Plan of Treatment Health Maintenance Due Date Last Done Comments Cervical Cancer Screening Pa p Smear (Age 21 to 29) Every 3 Years 1999 Cervical Cancer Screening 1999 Annual Physical 2002 HPV Vaccines (1 - 3-dose series) 2014 Hepatitis C 2017 Hepatitis B Vaccines (1 of 3 - 19+ 3-dose series) 2018 COVID-19 Vaccine (3 - 2024-2 6 season) 2025 09/15/2021, 08/18/2021 Influenza Adult (#1) 2025 04/12/2023, 04/19/2022 DTaP, Tdap and Td Vaccines ( 3 - Td or Tdap) 11/25/2031 11/24/2021, 04/07/2014 RSV Immunization or 60+ Years (1 - 1-dose 75+ series) 2074 Meningococcal Vaccine Completed 05/07/2017 Hepatitis A Vaccines Aged Out No long er eligible based on patient's age to complete this topic Meningococcal B Vaccine Aged Out No l onger eligible based on patient's age to complete this topic Pneumococcal Vaccine: Pediatrics (0 to 5 Years) and At-Risk Patients (6 to 49 Years) Aged Out No longer eligible b ased on patient's age to complete this topic RSV Immunizations Under 20 Months Aged Out No longer eligible b ased on patient's age to complete this topic Insurance Credit [employer] OPEN ACCESS [facility] Care Teams Ocean Import Representative Relationship Specialty Start Date End Date Stefan Bella MD [address] [facility] [address] [place] [address] PCP - General FAMILY PRACTICE 12/28/23
--- OUTSIDE RECORDS SUMMARY | 2025-06-14 18:50 | XMS_ITS | Clinical Summary ---
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 Gender Identity Not on file Sexual Orientation Not on file Last Filed Vital Signs Vital Sign Reading Time Taken Comments Blood Pressure 117/69 03/31/2011 11:00 AM CDT Pulse 68 03/31/2011 11:00 AM CDT Temperature 35.9 C (96.7 F) 03/31/2011 11:00 AM CDT Respiratory Rate 15 03/31/2011 11:00 AM CDT Oxygen Saturation 100% 03/31/2011 11:00 AM CDT Inhaled Oxygen Concentration - - Weight 74.8 kg (165 lb) 03/31/2011 11:00 AM CDT Height 162.6 cm (5' 4) 03/31/2011 11:00 AM CDT Body Mass Index 28.32 03/31/2011 11:00 AM CDT Plan of Treatment Not on file Insurance [facility] Care Teams Clinical Operations Specialist Relationship Specialty Start Date End Date Provider, None [place] PCP - General 03/18/11
[2025-06-14 19:00] VITALS: BP 137/73; PULSE 89; RESP 20; TEMP 36.3; O2SAT 99
--- NOTE | 2025-06-14 19:12 | ED_ITS ---
HPI - Extremity Injury (Lower) General Chief Complaint: Extremity Injury, Lower Stated Complaint: L ankle Time Seen by Provider: 06/14/25 19:20 Source: patient and RN notes reviewed Mode of arrival: ambulatory Limitations: no limitations History of Present Illness HPI Narrative: 25-year-old female presents with concern for right ankle pain. She reports prior to arrival she was taking out the trash when her left ankle felt like it popped out of place and went back in place. Reports since then she has had bilateral ankle pain. She has been using crutches. She report pain at rest and pain with weight-bearing or flexion and extension. complaint: ankle injury Related Data Home Medications ?Medication ?Instructions ?Recorded ?Confirmed ?Last Taken ?Type No Home Medications 06/14/25 06/14/25 U nknown History Allergies Allergy/AdvReac Type Severity Reaction Status Date / Time No Known Allergies Allergy Verified 06/14/25 19:00 Review of Systems Review of Systems: CONSTITUTIONAL: Denies malaise, chills, sweats, or fever. SKIN: Denies rash or itching, open skin, laceration, abrasion, redness, warmth MUSCULOSKELETAL: Reports left ankle pain NEUROLOGIC: Denies numbness, weakness All systems reviewed & are unremarkable except as noted in HPI and below PMFSH Family History Family History Father Patient's father is in good health Mother Brain cancer Social History Social History Smoking status: Never smoker Alcohol intake: never Substance use: never Lack of Transportation: No Lack of Food: Never True Current Housing: I Have Housing Concerned About Future Housing: No Difficulty Paying Gas/Electric Bills: No Difficulty Paying for Meds: No Currently Unemployed: No Education: Bachelor's Degree Difficulty w/ Childcare or Family Care: No Spiritual care concerns: No Comments At time of signature, agree with nursing past medical, surgical, social and family history. There is no relevant family history pertinent to the presenting complaint Exam Narrative: GENERAL: Well-appearing, well-nourished, and in no acute distress. HEAD: Normocephalic, atraumatic. EYES: PERRLA, conjunctivae clear NECK: Supple. CHEST: Speaks in full sentences. No respiratory distress. HEART: Regular rate and rhythm. Normal and equal peripheral pulses. EXTREMITIES: Left ankle, foot, digits have has grossly normal strength and sensation, grossly normal range of motion. No edema or ecchymosis. Normal sensation with sensitivity to light touch and pain. Generally tenderness. No open wounds, no skin tenting, no devitalized tissue or atrophy, no trophic changes, no obvious deformity, alignment normal, nearby joints and structures intact. Distal pulses palpable and equal bilaterally, skin warm, dry, pink. Capillary refill less than 3 seconds. SKIN: Warm, dry, no rash. NEURO: Alert and oriented x3. PSYCH: Normal mood and affect Course Course Emergency Course: Patient is aware of diagnosis, understands and agrees to treatment plan. Anticipatory guidance given. Patient agrees to follow-up as directed and is aware of reasons to seek care at the emergency department. Portions of this record may have been created with voice recognition software Level of Care: [facility] Visit Vital Signs Vital signs: Vital Signs Temperature 97.4 F L 06/14/25 19:00 Pulse Rate 89 06/14/25 19:00 Respiratory Rate 20 06/14/25 19:00 Blood Pressure 137/73 06/14/25 19:00 Pulse Oximetry 99 06/14/25 19:00 Oxygen Delivery Room Air 06/14/25 19:00 Temperature 97.4 F L 06/14/25 19:00 Pulse Rate 89 06/14/25 19:00 Respiratory Rate 20 06/14/25 19:00 Blood Pressure 137/73 06/14/25 19:00 Pulse Oximetry 99 06/14/25 19:00 Oxygen Delivery Room Air 06/14/25 19:00 MDM Differential Diagnosis Differential Diagnosis: I evaluated this patient in the [facility]. History is obtained from patient who is an independent historian and physical exam was performed.? Available medical records were reviewed. ? Exam findings and relevant testing show no acute concerns or changes; patient is non-toxic appearing and is in no distress. ? Patients injury and/or pain is consistent with musculoskeletal etiology. No signs of neurological or vascular compromise on exam. Compartments and tissues are soft without signs of compartment syndrome. Pain is felt appropriate for further evaluation on an outpatient basis. Differential diagnosis and treatment plan were discussed with the patient. Patient agrees with discussion and after shared medical decision making agrees with plan of care. All questions were answered to the patient's satisfaction. Patient is appropriate for outpatient treatment and follow-up. Discharge Plan Discharge Clinical Impression: Ankle sprain and strain Patient Disposition: Home Condition: Stable Instructions: Ankle Sprain (ED) Additional Instructions: Avoid activities that cause pain until the pain subsides. Ice to the area 20-30 minutes 4-6 times a day Elevate above heart Elastic wrap as directed for comfort for the next 5-7 days Crutches as directed if needed Tylenol for lesser pain Ibuprofen regularly for the next 2-3 days for the inflammation Follow up with your primary care provider if the condition is not improving within 1 week. If the condition worsens with numbness, tingling, decrease sensation with weakness seek treatment in the emergency room immediately. Patient Language: Trinidadian Prescriptions: No Action No Home Medications Follow-up/Referrals: Luis M,Dougie Ramires MD [Primary Care Provider, Unknown] Mikael Albarran MD [Physician, Orthopedics] Time of Disposition: 19:25
== END 2025-06-14 19:30 | disposition home or self-care (01) ==
PROVIDERS: Emergency Provider Nurse Practitioner; PCP Family Medicine
DX: S93.402A Sprain of unspecified ligament of left ankle, initial encounter (principal); S96.912A Strain of unspecified muscle and tendon at ankle and foot level, left foot, initial encounter; X58.XXXA Exposure to other specified factors, initial encounter
CPT/HCPCS: 73610; 99213; G0463